=== PATIENT | female | born 1950 | race Caucasian/White ===

== ENCOUNTER 2017-07-19 11:19 | Outpatient (CLI) | payer OTHER | END 2017-07-19 11:20 | disposition home or self-care (01) | LOC: BICMAMMO 11:19 | PROVIDERS: ATTEND Internal Medicine | DX: Z12.31 Encounter for screening mammogram for malignant neoplasm of breast (principal) | CPT/HCPCS: 77063; 77067 ==

== ENCOUNTER 2018-07-31 13:58 | Outpatient (CLI) | payer MEDICARE | END 2018-07-31 13:59 | disposition home or self-care (01) | LOC: BICMAMMO 13:58 | PROVIDERS: ATTEND Internal Medicine | DX: Z12.31 Encounter for screening mammogram for malignant neoplasm of breast (principal) | CPT/HCPCS: 77063; 77067 ==

== ENCOUNTER 2019-04-12 11:44 | Observation (INO) | payer MEDICARE, OTHER ==
--- NOTE | 2019-04-12 12:23 | CT ---
HEAD CT WITHOUT CONTRAST: Date: 04/12/19 COMPARISON: 05/28/[address] and 06/06/17 brain MRI. FINDINGS: The visualized paranasal sinuses/mastoid air cells are well aerated. There is no displaced calvarial fracture. The patient is status post posterior left parietooccipital craniotomy. There is encephalomalacia deep to the postoperative site inferiorly. There is an isodense intracranial mass lesion deep to the post operative site suggesting a residual intracranial mass lesion measuring in the 2.7 x 2.3 cm range. Th ere is peripheral coarse calcification associated with this. This is most consistent with residual me ningioma. There is no intracranial hemorrhage or ventricular enlargement. IMPRESSION: No intracranial hemorrhage. Evidence of prior craniotomy with 2.8 x 2.3 cm mass in the posterior left occipital region suggesting residual meningioma. Results called to Dr. Abdullahi at 1212 hours on 04/12/17. CODE CR. POS: OFF
[2019-04-12 13:02] LABS: #Eosinphils 0.1 thou/uL (0.0-0.7); #Lymphocytes 2.9 thou/uL (1.20-3.40); #Monocytes 0.6 thou/uL (0.11-0.59); #Neutrophils 5.6 thou/uL (1.40-6.50); %Basophils 0.5 % (0.0-1.0); %Lymphocytes 31.2 % (21.0-51.0); %Monocytes 6.1 % (0.0-10.0); %Neutrophils 61.2 % (42.0-75.0); Hemoglobin 13.3 g/dL (12.0-16.0); Mean Platelet Volume 7.4 fL (7.4-10.4); Platelet Count 350 thou/uL (130-400); RBC Distribution Width 11.9 % (11.5-14.5); White Blood Cell (WBC) Count 9.1 thou/uL (4.8-10.8)
--- NOTE | 2019-04-12 13:10 | RAD ---
XR Chest 1 View Portable HISTORY: Altered mental status, left-sided numbness and tingling COMPARISON: 11/21/2012 FINDINGS: The heart size is enlarged. There is evidence of old granulomatous disease.. The lungs are well expanded without focal areas of consolidation, pneumothorax or pleural effusions. no cheo pulmonary edema is seen.. IMPRESSION: No radiographic evidence of acute cardiopulmonary process.
[2019-04-12 13:17] LABS: ALT (SGPT) 20 U/L (8-55); AST (SGOT) 16 U/L (5-34); Albumin 4.6 g/dL (3.4-4.8); Alkaline Phosphatase 57 U/L (40-110); Anion Gap 14 mmol/L (10-20); BUN (Urea Nitrogen) 12 mg/dL (9.8-20.1); Bilirubin, Total 0.6 mg/dL (0.2-1.2); Calc. Creatinine Clearance 0 mL/min (70-130); Calcium 9.8 mg/dL (7.8-10.44); Carbon Dioxide 23 mmol/L (23-31); Chloride 102 mmol/L (98-107); Estimated GFR-MDRD 82; Globulin 2.7 g/dL (2.4-3.5); Glucose 208 mg/dL (80-115); Potassium 4.1 mmol/L (3.5-5.1); Protein, Total 7.3 g/dL (6.0-8.3); Sodium 135 mmol/L (136-145)
[2019-04-12] MEDS ORDERED: Aspirin 325 MG TAB ONE (13:50)
[2019-04-12] MEDS ORDERED: hydrALAZINE 20 MG/ML VIAL SLOW IVP PRN (18:36)
--- NOTE | 2019-04-12 22:37 | HP ---
CHIEF COMPLAINT: Numbness of the extremities, hands mainly. HISTORY OF PRESENT ILLNESS: This is a 69-year-old female patient, presents to the ER with above symptoms, initially called her primary care physician, Dr. Hermosillo, who referred the patient to the ER. In the ER, the patient had a CT scan of the head, it shows meningioma which was old and stable and no evidence of stroke. The patient is admitted for observation and neuro consult was obtained. PAST MEDICAL HISTORY: History of meningioma. HOME MEDICATIONS: List reviewed. SOCIAL HISTORY: Does not smoke or drink alcohol. ALLERGIES: NKDA. REVIEW OF SYSTEMS: CONSTITUTIONAL: Negative. HEAD AND ENT: Negative. MUSCULOSKELETAL: Negative. GENITOURINARY: Negative. NEUROLOGIC: As above. All other systems reviewed, negative. PHYSICAL EXAMINATION: GENERAL: The patient is alert, oriented x3, not in acute distress. VITAL SIGNS: Stable. Afebrile. HEENT: ANIBAL. Atraumatic, normocephalic. Dry mucous membranes. NECK: Supple. No JVD. LUNGS: Clear to auscultation bilaterally. CVS: S1, S2 heard. Regular rate and rhythm. No murmurs. ABDOMEN: Soft. Bowel sounds are present. Nontender, nondistended. EXTREMITIES: No cyanosis, clubbing, or edema. STAIN MAKER: Nonfocal. LABORATORY DATA: Lab work performed in the ED shows white count 9.1, hemoglobin 13.3, hematocrit 40.5, platelets 350. CT scan as above. Chemistry shows sodium 135, glucose , carbon dioxide 23. IMPRESSION: 1. New onset tingling of the extremities, wrists and forearms, unclear etiology, rule out cerebrovascular accident. 2. History of meningioma, stable. PLAN: 1. The patient will be admitted to stroke unit. 2. Consult Neurology. 3. 2D echocardiogram. 4. Obtain MRI if needed. 5. Further recommendation as per neuro team. Job ID: [id number]
[2019-04-13 05:42] LABS: Cardiac Risk 3.4 (Less than 4.5)
[2019-04-13] MEDS ORDERED: FLU VACC TS2019-20(65YR UP)/PF 180 MCG/0.5 ML SYRINGE IM ONE (09:00)
[2019-04-13] MEDS ORDERED: Aspirin 81 mg Enteric Coated Tablet PO SCH (09:00)
[2019-04-13] MEDS ORDERED: Non-Formulary Item 1 EACH (Dapagliflozin Propanediol [Farxiga] 10 MG) PO SCH (09:00)
[2019-04-13] MEDS ORDERED: DESVENLAFAXINE SUCCINATE 50 MG PO SCH (09:00)
[2019-04-13] MEDS ORDERED: Enoxaparin Sodium 30 MG/0.3 ML SYRINGE SC SCH (09:00)
[2019-04-13] MEDS ORDERED: Glimepiride 2 MG TAB PO SCH (09:00)
--- NOTE | 2019-04-13 10:27 | MRI ---
MRI BRAIN WITHOUT CONTRAST: 04/13/2019 HISTORY: Re-valuate intracranial mass lesion. COMPARISON: 06/06/2017 TECHNIQUE: Multiplanar multisequence MR imaging of the brain is obtained without contrast. FINDINGS: The diffusion weighted imaging demonstrates no evidence for acute infarction. The axial gradient echo imaging demonstrates no evidence for acute hemorrhage. There is an extra-axia l mass associated with the posterior medial aspect of the tentorium on the left abutting the posterior medial left cerebellar hemisphere as well as the medial aspect of the occipital lobe on the left inferiorly. This lesion is isointense on T1 and T2 weighted imaging, measuring 2.3 x 2.2 x 2.7 cm. There is associated craniotomy changes. The lesion is hyperintense on FLAIR imaging. When com pared to the 06/06/2017 exam, this lesion appears grossly unchanged and is most consistent with a meningioma. Post contrast imaging was not obtained at this time. Regional bone marrow signal intensity appears within normal limits. IMPRESSION: No evidence for acute infarction or intracranial hemorrhage. Extra-axial mass on the left posteriorly suggesting a stable meningioma. Transcribed Date/Time: 04/13/2019 10:33 AM
--- NOTE | 2019-04-13 11:26 | PDOC.HOSPP ---
- Subjective Encounter Date: 04/13/19 Encounter Time: 11:24 Subjective: Tingling present in the wrists only - Objective Vital Signs & Weight: Vital Signs (12 hours) Temp Pulse Resp BP BP Pulse Ox 04/13/19 07:47 98.0 F 80 14 136/63 98 04/13/19 03:32 97.5 F L 74 16 139/65 95 04/12/19 23:50 97.8 F 85 16 133/61 96 Weight Weight 159 lb I&O: 04/12/19 04/13/19 04/14/19 06:59 06:59 06:59 Intake Total 240 Balance 240 Result Diagrams: 04/12/19 12:02 04/12/19 12:02 Additional Labs: Accuchecks 04/13/19 04/13/19 04/12/19 10:52 05:41 17:11 POC Glucose 242 H 158 H 98 04/12/19 11:54 POC Glucose 225 H Hospitalist ROS - Medication Medications: Active Medications Generic Name Dose Route Start Last Admin Trade Name Antolin PRN Reason Stop Dose Admin Aspirin 81 mg 04/13/19 09:00 04/13/19 10:24 Ecotrin PO 81 mg DAILY AUTUMN Administration Enoxaparin Sodium 30 mg 04/13/19 09:00 04/13/19 10:27 Lovenox SC 30 mg 0900 AUTUMN Administration Glimepiride 2 mg 04/13/19 09:00 04/13/19 10:27 Amaryl PO 2 mg DAILY AUTUMN Administration - Exam General Appearance: NAD, awake alert, ill appearing Eye: PERRL, anicteric sclera, scleral icterus ENT: normocephalic atraumatic, no oropharyngeal lesions, moist mucosa, dry oral mucosa Neck: supple, symmetric, no JVD, no thyromegaly, no lymphadenopathy, no carotid bruit, JVD Heart: RRR, no murmur, no gallops, no rubs, normal peripheral pulses, irregular , diminshed peripheral pulses, murmur present, II/IV, III/IV Respiratory: CTAB, no wheezes, no rales, no ronchi, normal chest expansion, no tachypnea, normal percussion, rales, rhonchi, tachypneic, wheezes Gastrointestinal: soft, non-tender, non-distended, normal bowel sounds, no palpable masses, no hepatomegaly, no splenomegaly, no bruit, no guarding, no rigidity, tender to palpation, distended, diminished bowl sounds, voluntary guarding Extremities: no cyanosis, no clubbing, no edema, 1+ LE edema, 2+ LE edema, clubbing Skin: normal turgor, no lesions, no rashes, tenting Neurological: cranial nerve grossly intact, normal sensation to touch, no weakness, no focal deficits, no new deficit, facial droop, hemiplegia, speech deficit, vision deficit Musculoskeletal: normal tone, normal strength, no muscle wasting, generalized weakness, diffuse muscle atrophy Psychiatric: normal affect, normal behavior, A&O x 3, oriented to person, oriented to place, oriented to time, not oriented, flat affect, somnolent, lethargic Hosp A/P (1) Left hand paresthesia Code(s): R20.2 - PARESTHESIA OF SKIN Status: Acute (2) Right hand paresthesia Code(s): R20.2 - PARESTHESIA OF SKIN Status: Acute - Plan neuro consulted, home if okay with neuro if MRI not needed.
--- NOTE | 2019-04-13 13:24 | PDOC.HOSPP ---
- Subjective Encounter Date: 04/13/19 Encounter Time: 13:22 Subjective: No new complaints - Objective Vital Signs & Weight: Vital Signs (12 hours) Temp Pulse Pulse Pulse Resp BP BP 04/13/19 11:00 97.9 F 84 16 04/13/19 10:33 84 88 151/67 H 170/68 H 04/13/19 10:32 84 151/67 H 04/13/19 07:47 98.0 F 80 14 04/13/19 03:32 97.5 F L 74 16 BP Pulse Ox 04/13/19 11:00 130/61 94 L 04/13/19 10:33 04/13/19 10:32 04/13/19 07:47 136/63 98 04/13/19 03:32 139/65 95 Weight Admit Weight 159 lb Weight 159 lb I&O: 04/12/19 04/13/19 04/14/19 06:59 06:59 06:59 Intake Total 240 Balance 240 Result Diagrams: 04/12/19 12:02 04/12/19 12:02 Additional Labs: Accuchecks 04/13/19 04/13/19 04/12/19 10:52 05:41 17:11 POC Glucose 242 H 158 H 98 Hospitalist ROS - Medication Medications: Active Medications Generic Name Dose Route Start Last Admin Trade Name Antolin PRN Reason Stop Dose Admin Aspirin 81 mg 04/13/19 09:00 04/13/19 10:24 Ecotrin PO 81 mg DAILY AUTUMN Administration Enoxaparin Sodium 30 mg 04/13/19 09:00 04/13/19 10:27 Lovenox SC 30 mg 09 AUTUMN Administration Glimepiride 2 mg 04/13/19 09:00 04/13/19 10:27 Amaryl PO 2 mg DAILY AUTUMN Administration - Exam General Appearance: NAD, awake alert, ill appearing Eye: PERRL, anicteric sclera, scleral icterus ENT: normocephalic atraumatic, no oropharyngeal lesions, moist mucosa, dry oral mucosa Neck: supple, symmetric, no JVD, no thyromegaly, no lymphadenopathy, no carotid bruit, JVD Heart: RRR, no murmur, no gallops, no rubs, normal peripheral pulses, irregular , diminshed peripheral pulses, murmur present, II/IV, III/IV Respiratory: CTAB, no wheezes, no rales, no ronchi, normal chest expansion, no tachypnea, normal percussion, rales, rhonchi, tachypneic, wheezes Gastrointestinal: soft, non-tender, non-distended, normal bowel sounds, no palpable masses, no hepatomegaly, no splenomegaly, no bruit, no guarding, no rigidity, tender to palpation, distended, diminished bowl sounds, voluntary guarding Extremities: no cyanosis, no clubbing, no edema, 1+ LE edema, 2+ LE edema, clubbing Skin: normal turgor, no lesions, no rashes, tenting Hosp A/P (1) Left hand paresthesia Code(s): R20.2 - PARESTHESIA OF SKIN Status: Acute (2) Right hand paresthesia Code(s): R20.2 - PARESTHESIA OF SKIN Status: Acute - Plan neuro consulted, home if okay with neuro if MRI not needed.Await 2 d echo
[2019-04-13 15:32] VITALS: BP 134/59; TEMP 97.7
[2019-04-13] MEDS ORDERED: metFORMIN 500 MG TAB PO SCH (17:00)
[2019-04-13] MEDS ORDERED: Non-Formulary Item 1 EACH (Metformin Hcl [Glucophage] 1,000 MG) PO SCH (17:00)
[2019-04-13] MEDS ORDERED: Atorvastatin Calcium 40 MG TAB PO SCH (21:00)
--- NOTE | 2019-04-13 22:14 | CON ---
DATE OF TELEMEDICINE CONSULTATION: 04-13-19 CHIEF COMPLAINT: Numbness of her left hand. HISTORY OF PRESENT ILLNESS: The patient is a pleasant 69-year-old lady, who reports yesterday she had nausea and then her fingers became numb in her left hand. She normally has neuropathy from her diabetes and she did not have any numbness in right hand. No history of dizziness. She did not have any vision problems or weakness. Her blood pressure was high. She is diabetic and she had recent problems with her blood pressure medications. Lisinopril caused side effect of cough. She had a rash from one of the other blood pressure medications. She fell in December and had a head injury. Overall, she has been independent taking care of her day-to-day activities and because she felt nauseous, she had numbness in the left hand. She thinks this could be her neuropathy. PREVIOUS MEDICAL HISTORY: The patient reports she has history of meningioma in the past, diabetes, hypertension, and hypercholesterolemia MEDICATIONS: Medication list from home was reviewed. ALLERGIES: NO KNOWN DRUG ALLERGIES. FAMILY HISTORY: She has a daughter who is 39 years old, has a heart murmur. Her paternal grandfather, maternal grandmother had diabetes. Father at 87 from COPD. Mother in her late 60s. The patient has 2 siblings with diabetes, both her sister and brother and there are 2 siblings without diabetes. REVIEW OF SYSTEMS: GENERAL: Negative. HEENT: Negative. OPHTHALMOLOGIC: Negative for any vision problems. GI: Positive for nausea. NEUROLOGICAL: Positive for numbness in the left hand in the fingers only. GENITOURINARY: Negative for any bladder symptoms. DERMATOLOGIC: Positive for rash recently from one of her blood pressure medications. NEUROLOGICAL: Positive for numbness. HEMATOLOGICAL: Negative for bleeding diathesis. LABORATORY DATA: White count 9.1, hemoglobin 13.3, hematocrit 40.5, platelet count 350. Chemistry; sodium 135, potassium 4.1, chloride 102, bicarb 23, BUN 12, creatinine 0.71, glucose 208, triglycerides 173, cholesterol 181, LDL 92, HDL 54. Her MRI of the brain was reviewed and her MRI showed presence of extra-axial mass on the left posteriorly suggesting a meningioma. No evidence of acute infarct or intracranial hemorrhage. Echocardiogram showed no PFO. EF is 55% to 60%. Trace mitral regurgitation. Normal aortic valve. Ultrasound scan of carotids pending. PHYSICAL EXAMINATION: VITAL SIGNS: Temperature 97.7, pulse 84, respiratory rate 16, O2 saturations 95 , blood pressure 134/59. GENERAL APPEARANCE: Well-built, well-nourished lady, who is comfortable. She is slightly obese. CHEST: Clear vesicular breathing CARDIOVASCULAR: S1 and S2 heard. No murmurs. ABDOMEN: Soft and nontender. No organomegaly noted. NEUROLOGIC: Motor bulk normal, tone normal. Strength 5/5 throughout in upper and lower extremities in iliopsoas, hamstrings, quadriceps, ankle dorsiflexion, plantar flexion, deltoid, biceps, triceps, wrist extension and flexion, finger extension and flexion. Higher intellectual functions are normal. Cranial nerves 2-12, pupils are 2 mm, reactive to light and normal sensation of face bilaterally. Tongue midline. No atrophy noted. No facial asymmetry noted. Hearing is normal. Normal aeration of palate. Deep tendon reflexes were 2+ throughout. Sensory normal to touch bilaterally. Cerebellar, normal [id number] and [id number]. IMPRESSION AND PLAN: The patient is a 69-year-old lady with left hand numbness. 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 She also is high risk for stroke because of presence of diabetes, hypertension, hypercholesterolemia, although no one in her family had strokes. On examination, she had normal neurological examination. MRI did not show any evidence of acute stroke. She has a stable prior meningioma. At this time, she can continue with aspirin and statin for stroke prophylaxis and agree with discharge plan. Job ID: [id number] [facility]
[2019-04-14] MEDS ORDERED: Venlafaxine HCl XR 75 MG CAP PO SCH (09:00)
[2019-04-14] MEDS ORDERED: Dapagliflozin Propanediol [Farxiga] 10 MG PO SCH (09:00)
--- NOTE | 2019-04-16 04:35 | DIS ---
DATE OF ADMISSION: 04/12/2019 DATE OF DISCHARGE: 04/13/2019 FINAL DIAGNOSIS: Tingling of the bilateral extremities, possible neuropathy. HOSPITAL COURSE: The patient was admitted. Consultation including Neurology was obtained. MRI of brain was obtained, within normal limits. As patient's tingling has resolved, Neurology recommended the patient to be discharged. Echocardiogram was within normal limits. The patient requested to follow up with PCP for possible nerve conduction studies. DISCHARGE INSTRUCTIONS: Discharge patient home. FOLLOWUP CARE: Follow up with PCP and Neurology as scheduled. DISCHARGE MEDICATIONS: As per the consultation sheet. DIET: ADA 1800 calories. ACTIVITY: As tolerated. Follow up care has been arranged. CONDITION OF THE PATIENT: At the time of discharge, tolerating diet well, ambulating, not in acute distress. Job ID: [id number]
== END 2019-04-13 18:54 | disposition home or self-care (01) ==
LOC: ERS 11:44 → ERHOLD 14:49 → 2SE 18:15
PROVIDERS: ADMIT Internal Medicine; ATTEND Internal Medicine
DX: R20.2 Paresthesia of skin (principal); E11.40 Type 2 diabetes mellitus with diabetic neuropathy, unspecified; I10 Essential (primary) hypertension; E78.00 Pure hypercholesterolemia, unspecified; D32.0 Benign neoplasm of cerebral meninges; Z79.84 Long term (current) use of oral hypoglycemic drugs; Z79.899 Other long term (current) drug therapy; Z98.890 Other specified postprocedural states
CPT/HCPCS: 70450; 70551; 71045; 80053; 80061; 82962 ×2; 84484; 85025; 93005; 93306; 96372; 97139 ×4; 99285; G0378 ×3; 36415; 36416; J1650

== ENCOUNTER 2021-07-29 09:12 | Outpatient (CLI) | payer MEDICARE | END 2021-07-29 09:13 | disposition home or self-care (01) | LOC: BICMAMMO 09:12 | PROVIDERS: ATTEND Internal Medicine | DX: Z12.31 Encounter for screening mammogram for malignant neoplasm of breast (principal) | CPT/HCPCS: 77063; 77067 ==

== ENCOUNTER 2021-10-19 16:41 | Emergency (ER) | payer MEDICARE ==
[2021-10-19] MEDS ORDERED: Ketorolac Tromethamine 30 MG/ML VIAL ONE (17:36)
== END 2021-10-19 18:07 | disposition home or self-care (01) ==
LOC: ERS 16:41
DX: M19.012 Primary osteoarthritis, left shoulder (principal); E11.9 Type 2 diabetes mellitus without complications; W19.XXXA Unspecified fall, initial encounter
CPT/HCPCS: 96372; J1885

== ENCOUNTER 2022-01-08 05:18 | Emergency (ER) | payer MEDICARE | END 2022-01-08 06:00 | disposition home or self-care (01) | LOC: ERS 05:18 | DX: M79.605 Pain in left leg (principal); E11.9 Type 2 diabetes mellitus without complications; Z79.899 Other long term (current) drug therapy | CPT/HCPCS: 99283 ==

== ENCOUNTER 2022-05-26 12:23 | Outpatient (CLI) | payer MEDICARE ==
[~2022-05-26 12:23] MED LIST: Magnevist 469MG/ML 20 ML VIAL ONE
== END 2022-05-26 12:24 | disposition home or self-care (01) ==
LOC: TBSIIMAG 12:23
PROVIDERS: ATTEND Neurological Surgery
DX: D32.0 Benign neoplasm of cerebral meninges (principal)
CPT/HCPCS: 70553; A9579

== ENCOUNTER 2023-10-29 13:26 | Emergency (ER) | payer MEDICARE ==
[2023-10-29 14:05] LABS: #Basophils 0.03 10x3/uL (0.0-0.2); %Basophils 0.3 % (0.0-1.0); %Eosinophils 1.7 % (0.0-10.0); %Lymphocytes 30.3 % (21.0-51.0); %Monocytes 6.4 % (0.0-10.0); Hematocrit 40.2 % (36.0-47.0); Hemoglobin 13.6 g/dL (12.0-16.0); Mean Corpuscular HGB CONC 33.8 g/dL (32.0-36.0); Mean Corpuscular Hemoglobin 29.7 pg (27.0-31.0); Mean Corpuscular Volume 87.8 fL (78.0-98.0); Mean Platelet Volume 9.4 fL (7.4-10.4); Platelet Count 331 10x3/uL (130-400); RBC Distribution Width 12.5 % (11.5-14.5); Red Blood Cell (RBC) Count 4.58 mill/uL (4.20-5.40)
[2023-10-29 14:42] LABS: ALT (SGPT) 32 U/L (8-55); AST (SGOT) 23 U/L (5-34); Albumin 4.2 g/dL (3.4-4.8); Alkaline Phosphatase 119 U/L (40-110); Anion Gap 19 mmol/L (10-20); BUN (Urea Nitrogen) 15 mg/dL (9.8-20.1); Bilirubin, Total 0.8 mg/dL (0.2-1.2); Calc. Creatinine Clearance 0 mL/min (70-130); Calcium 9.9 mg/dL (7.8-10.44); Carbon Dioxide 23 mmol/L (23-31); Chloride 104 mmol/L (98-107); Estimated GFR 72; Glucose 284 mg/dL (83-110); Potassium 4.6 mmol/L (3.5-5.1); Protein, Total 7.2 g/dL (5.8-8.1); Sodium 141 mmol/L (136-145)
== END 2023-10-29 15:35 | disposition home or self-care (01) ==
LOC: ERS 13:26
DX: E11.65 Type 2 diabetes mellitus with hyperglycemia (principal); N39.0 Urinary tract infection, site not specified; I10 Essential (primary) hypertension; R54 Age-related physical debility
CPT/HCPCS: 36415; 80053; 82010; 85025; 99284

== ENCOUNTER 2023-11-11 12:45 | Outpatient (CLI) | payer MEDICARE | END 2023-11-11 12:46 | disposition home or self-care (01) | LOC: BICMAMMO 12:45 | PROVIDERS: ATTEND Internal Medicine | DX: Z12.31 Encounter for screening mammogram for malignant neoplasm of breast (principal) | CPT/HCPCS: 77063; 77067 ==

== ENCOUNTER 2025-05-27 09:32 | Outpatient (CLI) | payer MEDICARE ==
[2025-05-27 10:29] LABS: #Basophils 0.04 10x3/uL (0.0-0.2); #Eosinophils 0.18 10x3/uL (0.0-0.7); #Monocytes 0.47 10x3/uL (0.11-0.59); #Neutrophils 3.90 10x3/uL (1.40-6.50); %Basophils 0.6 % (0.0-1.0); %Eosinophils 2.7 % (0.0-10.0); %Lymphocytes 31.8 % (21.0-51.0); %Monocytes 7.0 % (0.0-10.0); %Neutrophils 57.6 % (42.0-75.0); Hematocrit 40.3 % (36.0-47.0); Hemoglobin 13.2 g/dL (12.0-16.0); Mean Corpuscular Hemoglobin 28.7 pg (27.0-31.0); Mean Corpuscular Volume 87.6 fL (78.0-98.0); Platelet Count 341 10x3/uL (130-400); Red Blood Cell (RBC) Count 4.60 mill/uL (4.20-5.40); White Blood Cell (WBC) Count 6.76 10x3/uL (4.8-10.8)
[2025-05-27 11:12] LABS: Anion Gap 14 mmol/L (10-20); BUN (Urea Nitrogen) 17 mg/dL (9.8-20.1); Calc. Creatinine Clearance 0 mL/min (70-130); Calcium 9.7 mg/dL (7.8-10.44); Carbon Dioxide 26 mmol/L (23-31); Chloride 105 mmol/L (98-107); Glucose 110 mg/dL (83-110); Potassium 4.0 mmol/L (3.5-5.1); Sodium 141 mmol/L (136-145)
== END 2025-05-27 09:33 | disposition home or self-care (01) ==
LOC: LABBT 09:32
PROVIDERS: ATTEND Neurological Surgery
DX: Z01.818 Encounter for other preprocedural examination (principal); M48.062 Spinal stenosis, lumbar region with neurogenic claudication
CPT/HCPCS: 80048; 85025; 93005; 93010